=== PATIENT | female | born 1990 | race Caucasian/White ===

== ENCOUNTER 2024-05-13 01:21 | Emergency (ER) | payer OTHER ==
[~2024-05-13] VITALS: Ht 167.6 cm; Wt 75.0 kg
[2024-05-13 01:24] VITALS: TEMP 98.6; O2SAT 98
[2024-05-13 02:33] LABS: CHLORIDE 109 mEq/L (98-107); POTASSIUM 4.6 mEq/L (3.5-5.1); SODIUM 140 mEq/L (136-145)
[2024-05-13 02:34] LABS: CALCIUM 9.1 mg/dL (8.7-10.4); CARBON DIOXIDE 27 mEq/L (21-32)
[2024-05-13 02:39] LABS: CREATININE 0.5 mg/dL (0.6-1.0); GLUCOSE 103 mg/dL (70-105); UREA NITROGEN BLOOD 11 mg/dL (9-23)
[2024-05-13 02:43] LABS: BASOPHILS % 1.2 % (0.0-2.0); EOSINOPHILS % 2.1 % (0.0-5.0); HEMATOCRIT. 37.9 % (36.0-48.0); HEMOGLOBIN. 12.6 g/dL (12.0-16.0); LYMPHOCYTES % 33.8 % (20.0-50.0); MEAN CORPUSCULAR HGB CONC 33.3 g/dL (31.0-37.0); MEAN CORPUSCULAR VOLUME 90.1 fL (81.0-99.0); MEAN PLATELET VOLUME 8.7 fl (7.4-10.4); NEUTROPHILS % 56.9 % (40.0-76.0); PLATELET 408 x1000/uL (130-400); RED CELL DISTRIBUTION WIDTH 13.8 % (11.6-14.6); WHITE BLOOD COUNT 9.1 x1000/uL (4.5-11.0)
[2024-05-13 02:51] LABS: HCG SCREEN NEGATIVE
[2024-05-13] MEDS ORDERED: FAMO-135 MT (04:05)
[2024-05-13] MEDS ORDERED: ONDA4TAB50 MT (04:05)
[2024-05-13 04:43] VITALS: BP 103/86; PULSE 76; RESP 18
== END 2024-05-13 04:44 | disposition home or self-care (01) ==
LOC: ER 01:21
DX: R10.9 Unspecified abdominal pain (principal); F41.9 Anxiety disorder, unspecified
CPT/HCPCS: 36415; 74176; 80048; 84703; 85025; 99284

== ENCOUNTER 2024-08-15 11:39 | Emergency (ER) | payer OTHER ==
[~2024-08-15] VITALS: Ht 165.1 cm; Wt 73.0 kg
[~2024-08-15 11:39] MED LIST: FAMO-135 MT; ONDA4TAB50 MT
[2024-08-15 11:47] VITALS: BP 131/85; PULSE 90; RESP 16; TEMP 98.2; O2SAT 98
== END 2024-08-15 14:02 | disposition left against medical advice (07) ==
LOC: ER 11:39
DX: F41.9 Anxiety disorder, unspecified (principal); M54.50 Low back pain, unspecified; Z53.21 Procedure and treatment not carried out due to patient leaving prior to being seen by health care provider

== ENCOUNTER 2024-11-20 17:28 | Emergency (ER) | payer OTHER ==
[~2024-11-20] VITALS: Ht 170.2 cm; Wt 77.0 kg
[2024-11-20 17:30] VITALS: BP 134/86; PULSE 84; RESP 16; TEMP 36.7; O2SAT 100
[2024-11-20 22:36] LABS: CLARITY URINE CLEAR (CLEAR); COLOR URINE DARK YELLOW (YELLOW); GLUCOSE URINE NEGATIVE (NEGATIVE); KETONES URINE TRACE (NEGATIVE); LEUKOCYTE ESTERASE URINE 2+ (NEGATIVE); NITRITE URINE NEGATIVE (NEGATIVE); OCCULT BLOOD URINE 2+ (NEGATIVE); PROTEIN URINE TRACE (NEGATIVE); SPECIFIC GRAVITY URINE 1.032 (1.005-1.030)
[2024-11-20] MEDS: VISCOUS LIDOCAINE 2% 15 ML UDC PO STA (22:38)
[2024-11-20] MEDS: MAGNESIUM/ALUMINUM HYDROXIDE/SIMETHICONE 30ML UDC PO STA ×2 (22:38)
[2024-11-20 22:47] LABS: BACTERIA URINE TRACE; SQUAMOUS EPITHELIAL CELL URINE 1+ /lpf (RARE/1+)
[2024-11-20 22:51] LABS: *AMPHETAMINES SCREEN URINE PRESUMPTIVE POSITIVE (NEGATIVE); *BARBITURATES SCREEN URINE NEGATIVE (NEGATIVE); *BENZODIAZEPINES SCREEN URINE NEGATIVE (NEGATIVE); *COCAINE SCREEN URINE NEGATIVE (NEGATIVE); CANNABINOID URINE SCREEN NEGATIVE (NEGATIVE); ECSTASY MDMA SCREEN URINE NEGATIVE (NEGATIVE); METHADONE URINE SCREEN NEGATIVE (NEGATIVE); OPIATES URINE SCREEN NEGATIVE (NEGATIVE); PHENCYCLIDINE URINE SCREEN NEGATIVE (NEGATIVE)
[2024-11-21] MEDS: ZIPRASIDONE MESYLATE 20MG/VIAL IM ONE (00:18)
[2024-11-21] MEDS: NITROFURANTOIN 100MG M/M CAPSULE PO NR (00:19)
[2024-11-21 01:14] LABS: BASOPHILS % 0.7 % (0.0-2.0); EOSINOPHILS % 0.4 % (0.0-5.0); HEMATOCRIT. 39.3 % (36.0-48.0); HEMOGLOBIN. 13.4 g/dL (12.0-16.0); MEAN CORPUSCULAR HEMOGLOBIN 30.4 pg (28.0-32.0); MEAN CORPUSCULAR HGB CONC 34.1 g/dL (31.0-37.0); MEAN CORPUSCULAR VOLUME 89.2 fL (81.0-99.0); MEAN PLATELET VOLUME 7.7 fl (7.4-10.4); MONOCYTES % 8.1 % (2.0-8.0); NEUTROPHILS % 70.8 % (40.0-76.0); PLATELET 350 x1000/uL (130-400); RED BLOOD CELL COUNT 4.41 mill/uL (4.2-5.4); RED CELL DISTRIBUTION WIDTH 13.6 % (11.6-14.6); WHITE BLOOD COUNT 8.1 x1000/uL (4.5-11.0)
[2024-11-21] MEDS ORDERED: NITR-87 MT (01:18)
[2024-11-21 02:48] LABS: CARBON DIOXIDE 25 mEq/L (21-32); CHLORIDE 104 mEq/L (98-107); POTASSIUM 3.3 mEq/L (3.5-5.1); SODIUM 138 mEq/L (136-145)
[2024-11-21 02:49] LABS: CALCIUM 9.5 mg/dL (8.7-10.4); PROTHROMBIN TIME 10.8 sec (9.6-11.0)
[2024-11-21 02:53] LABS: CREATININE 0.7 mg/dL (0.6-1.0)
[2024-11-21 02:54] LABS: GLUCOSE 105 mg/dL (70-105); UREA NITROGEN BLOOD 12 mg/dL (9-23)
[2024-11-21 02:55] LABS: ACETAMINOPHEN < 2 ug/mL (10-30); ALANINE AMINOTRANSFERASE 16 IU/L (10-49); ALBUMIN 4.6 g/dL (3.2-4.8); ASPARTATE AMINOTRANSFERASE 34 IU/L (<34)
[2024-11-21 02:56] LABS: BILIRUBIN DIRECT 0.4 mg/dL (<=3.0); BILIRUBIN TOTAL 1.5 mg/dL (0.1-1.0); PROTEIN TOTAL 7.2 g/dL (6.0-8.3)
[2024-11-21 02:58] LABS: HCG SCREEN NEGATIVE
[2024-11-21 03:06] LABS: ETHANOL BLOOD < 10 mg/dL (<10)
== END 2024-11-21 04:53 | disposition home or self-care (01) ==
LOC: ER 17:28
DX: F15.129 Other stimulant abuse with intoxication, unspecified (principal); G92.9 Unspecified toxic encephalopathy; F41.9 Anxiety disorder, unspecified; Z79.899 Other long term (current) drug therapy
CPT/HCPCS: 80305; 81003; 99285; 80076; 80048; 81025; 80307; 80329; 80320; 84703; 83690; 85025; 85610; 36415; 74176; 96372; J3486; G0480

== ENCOUNTER 2024-11-21 05:15 | Emergency (ER) | payer OTHER ==
[~2024-11-21] VITALS: Ht 165.1 cm; Wt 73.0 kg
[~2024-11-21 05:15] MED LIST changes: +NITR-87 MT
[2024-11-21 05:20] VITALS: O2SAT 99
[2024-11-21 05:34] VITALS: BP 126/74; PULSE 84; RESP 18; TEMP 36.8; O2SAT 100
[2024-11-21] MEDS ORDERED: DIPHENHYDRAMINE 50MG/ML VIAL IM STA (08:42)
== END 2024-11-21 11:08 | disposition home or self-care (01) ==
LOC: ER 05:15
DX: F15.90 Other stimulant use, unspecified, uncomplicated (principal)
CPT/HCPCS: 93005; 99283